=== PATIENT | female | born 2000 | race African-American/Black ===

== ENCOUNTER 2022-10-28 21:30 | Emergency (ER) | payer OTHER ==
[~2022-10-28] VITALS: Ht 165.1 cm; Wt 56.7 kg
[2022-10-28 21:51] VITALS: BP_SYST 129
--- NOTE | 2022-10-28 21:55 | NUR ---
Patient triaged and placed in waiting room. VSS and patient appears in no acute distress at this time. Accompanied by friend, awaiting available bed, and MD notified of need for MSE.
--- NOTE | 2022-10-28 22:40 | NUR ---
DR. BLANKENSHIP WITH PATIENT FOR MSE.
[2022-10-28 23:44] VITALS: BP_SYST 129
--- NOTE | 2022-10-28 23:44 | NUR ---
Patient given written and verbal discharge instructions and verbalizes understanding. ER DR. BLANKENSHIP discussed with patient the results and treatment provided. Patient in stable condition. ID arm band removed. Patient educated on pain management and to follow up with PMD. Pain Scale 0. Opportunity for questions provided and answered. Medication side effect fact sheet provided.
== END 2022-10-28 23:44 | disposition home or self-care (01) ==
LOC: SED 21:30
DX: S53.402A Unspecified sprain of left elbow, initial encounter (principal); Z79.899 Other long term (current) drug therapy; W09.8XXA Fall on or from other playground equipment, initial encounter; Y93.43 Activity, gymnastics; Y92.89 Other specified places as the place of occurrence of the external cause; Y99.8 Other external cause status
CPT/HCPCS: 99283